=== PATIENT | female | born 1960 | race Caucasian/White ===

== ENCOUNTER 2016-12-03 05:57 | Inpatient (IN) | payer BC ==
[2016-11-22 15:33] VITALS: BMI 28.4
[2016-12-03] MEDS ORDERED: CEFAZOLIN 1 GM/D5W 50 ML IVPB ONE (06:32)
[2016-12-03] MEDS ORDERED: GABAPENTIN 300 MG CAPSULE (FP) PO ONE (06:32)
[2016-12-03] MEDS ORDERED: ROPIVICAINE 0.2%/MORPH PF/KETOROLAC - 51ML DISP.SYRINGE IA ONE ×2 (06:32→10:06)
[2016-12-03] MEDS ORDERED: oxyCODONE HCL 10 MG SUSTAINED ACTING TABLET PO ONE (06:32)
[2016-12-03] MEDS ORDERED: CELECOXIB 200 MG CAPSULE PO ONE (06:32)
[2016-12-03] MEDS ORDERED: TRANEXAMIC ACID 1000 MG/10 ML VIAL IVPUSH ONE ×2 (06:32→10:05)
[2016-12-03] MEDS ORDERED: DEXAMETHASONE SOD PHOSPHATE/PF 10 MG/ML SDV ONE (06:37)
[2016-12-03] MEDS ORDERED: BUPIVACAINE HCL/PF (5 MG/ML) 30 ML VIAL IJ ONE (06:38)
[2016-12-03] MEDS ORDERED: MIDAZOLAM HCL 2 MG/2 ML SINGLE DOSE VIAL ONE ×3 (06:38→08:53)
[2016-12-03] MEDS ORDERED: SODIUM CHLORIDE 0.9% P/F 10 ML VIAL IJ ONE ×2 (06:38→07:28)
[2016-12-03] MEDS ORDERED: DEXAMETHASONE SOD PHOSPHATE 4 MG/1 ML VIAL ONE (07:20)
[2016-12-03] MEDS ORDERED: PROPOFOL 20 ML ONE ×3 (07:20→09:05)
[2016-12-03] MEDS ORDERED: ONDANSETRON 4 MG/2 ML VIAL ONE (07:20)
[2016-12-03] MEDS ORDERED: ePHEDrine SULFATE 50 MG/1 ML AMPULE ONE (07:20)
[2016-12-03] MEDS ORDERED: PHENYLEPHRINE HCL 10 MG/1 ML SINGLE DOSE VIAL ONE (07:20)
[2016-12-03] MEDS ORDERED: LIDOCAINE HCL 2% 100 MG/5 ML DISP.SYRIN ONE (07:20)
[2016-12-03] MEDS ORDERED: SUCCINYLCHOLINE CHLORIDE 200 MG/10 ML VIAL ONE (07:20)
[2016-12-03] MEDS ORDERED: ceFAZolin SODIUM 1 GM VIAL ONE ×3 (07:20→09:59)
[2016-12-03] MEDS ORDERED: VANCOMYCIN 1,000 MG VIAL (RESTRICTED TO ID ONLY) ONE (07:21)
[2016-12-03] MEDS ORDERED: BUPIVACAINE HCL/PF 0.5% (5MG/ML) 10 ML VIAL ONE (07:38)
--- NOTE | 2016-12-03 08:24 | HP ---
Admitting History and Physical - Admission Chief Complaint: left knee OA History of Present Illness: left knee pain x several years. Dx'ed with severe OA. Failed conservative mgmt. Indicated for TKA History Source: Patient, Medical Record Limitations to Obtaining History: No Limitations - Past Medical History ...LMP: 08/12/16 Additional Past Medical History: See full PHM in written chart. - Past Surgical History Past Surgical History: Yes: Arthrosocopy Additional Past Surgical History: Ovarian cystectomy Breast implants fraire as child - Smoking History Smoking history: Never smoked Have you smoked in the past 12 months: No - Alcohol/Substance Use Hx Alcohol Use: No Home Medications - Allergies Allergies/Adverse Reactions: Allergies Allergy/AdvReac Type Severity Reaction Status Date / Time ibuprofen [From Advil] Allergy Severe FACIAL Verified 07/15/13 13:31 SWELLING - Home Medications Home Medications: Ambulatory Orders Cyclobenzaprine HCl [Flexeril 10 mg] 10 mg PO TID 11/22/16 Gabapentin 300 mg PO HS 11/22/16 Meloxicam [Mobic] 15 mg PO PRN PRN 11/22/16 Physical Examination Vital Signs: Vital Signs Temperature 98.9 F 12/03/16 06:34 Pulse Rate 88 12/03/16 06:34 Respiratory Rate 18 12/03/16 06:34 Blood Pressure 135/86 12/03/16 06:34 O2 Sat by Pulse Oximetry (%) Constitutional: Yes: Well Nourished, No Distress, Calm Eyes: Yes: WNL, Conjunctiva Clear HENT: Yes: WNL, Atraumatic, Normocephalic Neck: Yes: WNL, Supple Cardiovascular: Yes: WNL, Regular Rate and Rhythm Respiratory: Yes: WNL, Regular Gastrointestinal: Yes: WNL, Soft ...Rectal Exam: Yes: Deferred Musculoskeletal: Yes: Joint Stiffness, Joint Swelling, Muscle Pain, Muscle Weakness Extremities: Yes: WNL Edema: No Peripheral Pulses WNL: Yes Integumentary: Yes: WNL, Other (healed fraire in multiple areas) Neurological: Yes: WNL, Alert, Oriented ...Motor Strength: WNL Psychiatric: Yes: WNL, Alert, Oriented Labs: reviewed in chart Imaging - Results X-ray: Image Reviewed Problem List - Problems (1) Osteoarthritis of left knee Code(s): M17.12 - UNILATERAL PRIMARY OSTEOARTHRITIS, LEFT KNEE Qualifiers: Osteoarthritis type: primary Qualified Code(s): M17.12 - Unilateral primary osteoarthritis, left knee Assessment/Plan 56yo female with severe left knee OA for L TKA
[2016-12-03] MEDS ORDERED: VANCOMYCIN 1,000 MG VIAL (RESTRICTED TO ID ONLY) IVPB ONE (10:05)
--- NOTE | 2016-12-03 11:20 | OP ---
Operative Note - Note: Operative Date: 12/03/16 Pre-Operative Diagnosis: left knee OA Operation: left TKA Post-Operative Diagnosis: Same as Pre-op Surgeon: Kan Cornelius Clam Digger: Dawn Gagnon Anesthesia: Spinal Estimated Blood Loss (mls): 50
[2016-12-03] MEDS ORDERED: MAGNESIUM HYDROX 2400MG/30ML ORAL SUSPENSION 30 ML CUP PO PRN (11:21)
[2016-12-03] MEDS ORDERED: ONDANSETRON 4 MG/2 ML VIAL IVPB PRN (11:21)
[2016-12-03] MEDS ORDERED: MAG HYDROX/AL HYDROX/SIMETH 30 ML UNIT-DOSE CUP PO PRN (11:21)
[2016-12-03] MEDS ORDERED: LACTATED RINGERS SOLUTION 1,000 ML IV SCH (11:30)
[2016-12-03] MEDS ORDERED: ACETAMINOPHEN 325 MG TABLET (FP) ONE (12:11)
[2016-12-03] MEDS: KETOROLAC TROMETHAMINE 30 MG/1 ML VIAL IVPUSH SCH ×4 (12:15→18:09)
[2016-12-03] MEDS: traMADol HCL 50 MG TABLET PO SCH ×2 (12:15→18:10)
[2016-12-03] MEDS ORDERED: oxyCODONE HCL 5 MG TABLET PO PRN (13:35)
[2016-12-03] MEDS ORDERED: ROPIVACAINE 0.2% 400ML 400 ML ML NR ONE (13:35)
[2016-12-03] MEDS: ACETAMINOPHEN 325 MG TABLET (FP) PO SCH ×2 (14:38→18:09)
[2016-12-03] MEDS: oxyCODONE HCL 5 MG TABLET PO PRN (16:01)
[2016-12-03] MEDS ORDERED: ROPIVACAINE HCL 0.5% 30ML VIAL ONE (16:51)
[2016-12-03] MEDS: CEFAZOLIN 1 GM/D5W 50 ML IVPB SCH (18:07)
[2016-12-03] MEDS: CELECOXIB 200 MG CAPSULE PO SCH (21:45)
[2016-12-03] MEDS: ASCORBIC ACID 500 MG TABLET (FP) PO SCH (21:45)
[2016-12-03] MEDS: SENNOSIDES/DOCUSATE COMBO (SENNA PLUS) TABLET (UD) PO SCH (21:45)
[2016-12-03] MEDS: oxyCODONE HCL 10 MG SUSTAINED ACTING TABLET PO SCH (21:46)
[2016-12-03] MEDS: GABAPENTIN 300 MG CAPSULE (FP) PO SCH ×2 (21:46→21:47)
[2016-12-03] MEDS ORDERED: CELECOXIB 200 MG CAPSULE PO SCH (22:00)
[2016-12-04] MEDS: traMADol HCL 50 MG TABLET PO SCH ×5 (00:30→23:57)
[2016-12-04] MEDS: KETOROLAC TROMETHAMINE 30 MG/1 ML VIAL IVPUSH SCH ×2 (00:30→06:23)
[2016-12-04] MEDS: ACETAMINOPHEN 325 MG TABLET (FP) PO SCH ×5 (00:30→23:57)
[2016-12-04] MEDS: CEFAZOLIN 1 GM/D5W 50 ML IVPB SCH (02:00)
[2016-12-04] MEDS ORDERED: ASPIRIN 325 MG TABLET PO SCH (08:00)
[2016-12-04 08:47] LABS: MCH 28.6 pg (25.7-33.7); MCHC 33.7 g/dl (32.0-36.0); MEAN PLT VOLUME 9.6 fl (7.5-11.1); PLATELET COUNT 176 K/MM3 (134-434); RDW 14.6 % (11.6-15.6); WHITE BLOOD COUNT 13.1 K/mm3 (4.0-10.8)
[2016-12-04 08:58] LABS: ANION GAP 8 (8-16); CALCIUM 8.7 mg/dl (8.4-10.2); CO2 26 mmol/L (22-28); CREATININE 0.7 mg/dl (0.6-1.3); GLUCOSE,RANDOM 139 mg/dl (74-106)
--- NOTE | 2016-12-04 09:32 | SURG ---
Surgery Paper Twister Note Paper Twister: Dawn Gagnon PA-C Date of Service: 12/03/16 Diagnosis: left knee OA Procedure: left TKA I was present for the entirety of the operative procedure. For further detail, please refer to operative report. Visit type - Case Type Case Type: Scheduled Admission - Emergency Emergency Visit: No - New patient This patient is new to me today: Yes Date on this admission: 12/04/16 - Critical Care Critical Care patient: No
[2016-12-04] MEDS: PANTOPRAZOLE 40 MG TABLET (FP) PO SCH (10:09)
[2016-12-04] MEDS: CELECOXIB 200 MG CAPSULE PO SCH ×2 (10:09→21:41)
[2016-12-04] MEDS: ASPIRIN 325 MG TABLET PO SCH (10:09)
[2016-12-04] MEDS: GABAPENTIN 300 MG CAPSULE (FP) PO SCH ×3 (10:10→21:41)
[2016-12-04] MEDS: SENNOSIDES/DOCUSATE COMBO (SENNA PLUS) TABLET (UD) PO SCH ×2 (10:10→21:40)
[2016-12-04] MEDS: MULTIVITAMINS (DAILY MVI) TABLET (FP) PO SCH (10:10)
[2016-12-04] MEDS: ASCORBIC ACID 500 MG TABLET (FP) PO SCH ×2 (10:11→21:41)
[2016-12-04] MEDS: oxyCODONE HCL 10 MG SUSTAINED ACTING TABLET PO SCH ×2 (10:11→21:40)
--- NOTE | 2016-12-04 10:56 | PN ---
Progress Note (short form) - Note Progress Note: 56F POD1 s/p TKR under spinal anesthetic with CACB and tibial blocks for post operative pain. Pt is doing well, AVSS, reports that pain is well controlled. Sensory and motor function is intact in bilateral lower extremities, catheter site is clean.
[2016-12-04] MEDS: oxyCODONE HCL 5 MG TABLET PO PRN (21:41)
[2016-12-04 22:45] VITALS: PULSE 87
--- NOTE | 2016-12-05 01:10 | PN ---
Progress Note (short form) - Note Progress Note: Pt seen and examined yesterday (Saturday) evening. Doing well. No complaints. AVSS Selected Entries 12/04/16 22:43 Temperature 98.7 F Pulse Rate 87 Respiratory 18 Rate Blood Pressure 108/57 Laboratory Tests 12/04/16 12/04/16 07:45 07:45 WBC 13.1 H Hgb 11.7 Hct 34.7 Plt Count 176 Sodium 138 Potassium 4.3 Chloride 104 Carbon Dioxide 26 Anion Gap 8 BUN 19 H Creatinine 0.7 Random Glucose 139 H Calcium 8.7 Gen:NAD RLE: c/d/i, NVID A/P POD#1 s/p L TKA 1. PT/OOB 2. D/C home tomorrow. Problem List - Problems (1) Osteoarthritis of left knee Code(s): M17.12 - UNILATERAL PRIMARY OSTEOARTHRITIS, LEFT KNEE Qualifiers: Osteoarthritis type: primary Qualified Code(s): M17.12 - Unilateral primary osteoarthritis, left knee
--- NOTE | 2016-12-05 01:31 | DS ---
Physical Examination Vital Signs: Vital Signs Temperature 98.7 F 12/04/16 22:43 Pulse Rate 87 12/04/16 22:43 Respiratory Rate 18 12/04/16 22:43 Blood Pressure 108/57 12/04/16 22:43 O2 Sat by Pulse Oximetry (%) 96 12/04/16 22:43 Labs: CBC, BMP 12/04/16 07:45 12/04/16 07:45 Discharge Summary Reason For Visit: OSTEOARTHRITIS LEFT KNEE Current Active Problems Osteoarthritis of left knee (Acute) Procedures: Principal: total knee replacement left Hospital Course: Admitted for elective surgery. Procedure performed without complications. Pt received postoperative antibiotic prophylaxis and DVT ppx. Ambulated with physical therapy. Stable for discharge home with outpatient followup. Condition: Stable - Instructions Diet, Activity, Other Instructions: Dr. Cornelius - Knee Replacement Instructions Keep the Aquacel dressing on until removed by Dr. Cornelius in 10-14 days - it is antibacterial and waterproof and you can shower with it on. Call the office for a follow-up appointment with Dr. Giordano (Dr. Saba will be on vacation) in 10-14 days. [phone] Take one Aspirin 325mg daily for 6 weeks to prevent blood clots in your legs. Take one Pantoprazole 40mg daily for 6 weeks to protect against heartburn and ulcers. Take Meloxicam 15 mg daily for 30 days to reduce swelling and inflammation. Take a multivitamin, vitamin C supplement, and stool softener daily. For pain: *Mild pain (1-3/10): Take 1 Tramadol tablet every 4 hours as needed. Moderate pain (4-6/10): Take 1 Tramadol tablet and 1 Percocet tablet every 4 hours as needed. Severe pain (7-10/10): Take 1 Tramadol tablet and 2 Percocet tablets every 4 hours as needed. Activity: You can put as much weight on the operative leg as you want. Right after you get home, there will be a physical therapist coming to your house to help you walk around and bend/straighten your knee. After your follow-up appointment, you will be sent for more intensive outpatient physical therapy which will include machines and equipment that the home therapist cannot bring to your house. Always use a walker or cane for balance and to prevent falls. Disposition: [facility]NS/HOME HEALTH CARE - Home Medications Comprehensive Discharge Medication List: Ambulatory Orders Cyclobenzaprine HCl [Flexeril 10 mg] 10 mg PO TID 11/22/16 Gabapentin 300 mg PO HS 11/22/16 Ascorbic Acid [Vitamin C -] 500 mg PO BID tablet 12/05/16 Aspirin [ASA -] 325 mg PO DAILY@0800 tablet 12/05/16 Meloxicam [Mobic] 15 mg PO DAILY #30 tab 12/05/16 Multivitamins [Multivit ([facility] Formulary)] 1 tab PO DAILY tab 12/05/16 Oxycodone HCl/Acetaminophen [Percocet 5-325 mg Tablet] 1 - 2 tab PO Q4H PRN #60 tablet MDD 8 12/05/16 Pantoprazole Sodium [Protonix -] 40 mg PO DAILY #40 tab 12/05/16 Sennosides/Docusate Sodium [Pericolace -] 2 tablet PO BID tablet 12/05/16 Tramadol HCl [Ultram -] 50 mg PO Q4H PRN #90 tablet MDD 6 12/05/16
[2016-12-05] MEDS: traMADol HCL 50 MG TABLET PO SCH (06:27)
[2016-12-05] MEDS: ACETAMINOPHEN 325 MG TABLET (FP) PO SCH (06:27)
[2016-12-05 06:41] VITALS: BP 118/60; TEMP 98.3
[2016-12-05] MEDS: ASPIRIN 325 MG TABLET PO SCH (08:02)
[2016-12-05] MEDS: oxyCODONE HCL 10 MG SUSTAINED ACTING TABLET PO SCH (09:09)
[2016-12-05] MEDS: MULTIVITAMINS (DAILY MVI) TABLET (FP) PO SCH (09:09)
[2016-12-05] MEDS: PANTOPRAZOLE 40 MG TABLET (FP) PO SCH (09:09)
[2016-12-05] MEDS: CELECOXIB 200 MG CAPSULE PO SCH (09:10)
[2016-12-05] MEDS: GABAPENTIN 300 MG CAPSULE (FP) PO SCH (09:10)
[2016-12-05] MEDS: ASCORBIC ACID 500 MG TABLET (FP) PO SCH (09:10)
[2016-12-05] MEDS: SENNOSIDES/DOCUSATE COMBO (SENNA PLUS) TABLET (UD) PO SCH (09:13)
[2016-12-05 09:21] LABS: MCH 27.8 pg (25.7-33.7); MCHC 33.2 g/dl (32.0-36.0); MEAN CELL VOLUME 83.8 fl (80-96); MEAN PLT VOLUME 10.4 fl (7.5-11.1); PLATELET COUNT 180 K/MM3 (134-434); RDW 14.7 % (11.6-15.6); WHITE BLOOD COUNT 8.9 K/mm3 (4.0-10.8)
--- NOTE | 2016-12-05 11:09 | PN ---
Progress Note (short form) - Note Progress Note: POD #2 - s/p left total knee replacement under spinal anesthesia/peripheral nerve block. Pt. doing well, ready for discharge. Good pain control. Adductor canal catheter removed. Discharge pain meds as per ortho.
--- NOTE | 2016-12-05 12:42 | PN ---
Progress Note (short form) - Note Progress Note: Pt seen and examined this morning. Doing well. No complaints. AVSS Selected Entries 12/05/16 12/05/16 03:00 06:40 Temperature 98.3 F Pulse Rate 87 Respiratory 20 Rate Blood Pressure 118/60 O2 Sat by Pulse 96 Oximetry (%) Oxygen Delivery Room Air Method Laboratory Tests 12/05/16 07:51 WBC 8.9 D Hgb 11.1 Hct 33.4 Plt Count 180 Gen:NAD RLE: c/d/i, NVID A/P POD#2 s/p L TKA 1. PT/OOB 2. D/C home Problem List - Problems (1) Osteoarthritis of left knee Code(s): M17.12 - UNILATERAL PRIMARY OSTEOARTHRITIS, LEFT KNEE Qualifiers: Osteoarthritis type: primary Qualified Code(s): M17.12 - Unilateral primary osteoarthritis, left knee
--- NOTE | 2016-12-05 14:39 | PATH ---
Surgical Pathology Report Patient Name: QASIM COKER Med. Rec. #: [id number] /Age/Gender: 1960 (Age: 56) / F Account: [id number] Location: [facility] MED-SURG Taken: 12/03/2016 Received: 12/03/2016 Reported: 12/05/2016 Physicians: Kan Cornelius M.D. Specimen(s) Received LEFT KNEE BONE AND TISSUE Clinical History Osteoarthritis left knee Final Diagnosis BONE AND SOFT TISSUE, LEFT KNEE, REPLACEMENT: DEGENERATIVE JOINT DISEASE. Electronically Signed [place] Charles M.D. Gross Description Received in formalin labeled "left knee bones and tissue," is a 12.5 x 9.5 x 1.6 cm aggregate of multiple irregular, unoriented portions of bone and soft tissue. The tibial plateau measures 7.3 x 5.5 x 1.6 cm. There is a 2.5 cm greatest dimension area of eburnation present. The remaining articular surfaces are grubbs-yellow and focally granular. The underlying trabecular bone is yellow and hard. [place] sections are submitted in one cassette, following decalcification. /12/04/201612/04/2016
--- NOTE | 2016-12-27 20:05 | SPEC ---
DATE OF OPERATION: 12/03/2016 PREOPERATIVE DIAGNOSIS: Left knee osteoarthritis. POSTOPERATIVE DIAGNOSIS: Left knee osteoarthritis. PROCEDURE: Left total knee replacement. ATTENDING: Jenniffer Jose M.D. YARD CONDUCTOR: Cecy Luo ANESTHESIA: Spinal plus sedation. ESTIMATED BLOOD LOSS: 50 mL. TOURNIQUET TIME: 114 minutes. COMPLICATIONS: None. SPECIMENS: Resected bone was sent for pathology and analysis. DISPOSITION: The patient was transferred to the PACU in stable condition. IMPLANTS USED: [place] Triathlon size 4 femoral component, [place] Triathlon size 4 tibial component, 32-mm patellar component, 11-mm posterior stabilized polyethylene component. INDICATION: This is a 56-year-old female who presented to the office complaining of severe left knee pain. She was seen and examined by Dr. Jose and diagnosed with severe left knee osteoarthritis. Patient was initially treated nonoperatively with injections, medications, physical therapy, and continued to have severe pain and ambulatory dysfunction. She was subsequently indicated for a total knee replacement. The risks, benefits, and alternatives to the procedure were explained to the patient in great detail, and she elected to proceed with the surgery. On the day of surgery, the patient was taken to the operating room and placed on the OR table. Spinal anesthesia was administered by the anesthesiologist. The patient was then positioned supine on the table and all bony prominences were padded. A nonsterile tourniquet was placed on the proximal thigh. The knee was then prepped and draped in the usual sterile fashion and intravenous antibiotics were given for infection prophylaxis. A surgical time-out was then performed with the team, and the patients identity, procedure, side, availability of implants, and the administration of antibiotics was confirmed. The leg was then elevated and exsanguinated, and the tourniquet was inflated. With the knee flexed, a midline incision was made and carried down through the subcutaneous fat to the underlying retinaculum. A medial parapatellar arthrotomy was performed. This was followed by a subperiosteal dissection of the tissue off the proximal, medial tibia. A portion of fat pad was removed from under the patellar tendon, and a small portion of fat was excised off the distal supracondylar femur. The knee was then flexed further and the anterior horn of the lateral meniscus was released from the midline. Next, the anterior and posterior cruciate ligaments were transected. Osteophytes were removed from both the femur and tibia. Grade 4 changes were noted diffusely throughout the knee. Hohmann retractors were then placed around the distal femur. The starting drill was used to enter the intramedullary canal. The starting point had been chosen by checking the radiographs and anatomy. Proper alignment and intramedullary placement was then confirmed by placing the long narrow gerard into the femur. Next, the distal femoral cutting guide was adjusted to 6 degrees of valgus and pinned to the femur. The bone resection was assessed using an dave-wing. An approximately 10mm distal cut was made and the cut pieces measured. Once this was complete, the sizing guide was used to determine which size femoral component should be used. Next, the appropriately sized 4-in-1 cutting block was then placed at the correct amount of external rotation and the dave wing was used to assure that there would be no notching of the anterior cortex of the femur. Once this was done, Hohmann retractors were used to protect the medial and lateral collateral ligaments, and all appropriate bone cuts were made. Attention was then turned to the tibia. Hohmann retractors were used to translate the tibia anteriorly and protect the collateral ligaments. The medial and lateral menisci were removed. The extramedullary tibial alignment guide was then placed and adjusted for rotation, varus/valgus, and slope. The height of the cutting block was adjusted to the level of the desired bone resection and then pinned in place. The proximal tibia was then cut with a saw and the bone was removed and measured. Once this was completed, trial components were placed and the knee was taken through a full range of motion. Soft tissue balance was assessed in both flexion and extension and found to be appropriate. The knee was stable throughout the full range of motion. The knee was then put into extension and the patella everted. The synovium around the patella was circumscribed with electrocautery. A caliper was used to measure the patellar thickness and a saw was then used to resect the patella at the chondro-osseous junction. The cut surface was then sized and drilled for the appropriate patellar button, with care taken to medialize it. A trial patella was then placed and the knee was again taken through a full range of motion. The knee was found to have both good balance and good patellar tracking. All of the components were removed except the tibial base plate. The appropriate instrumentation was used to drill and punch the proximal tibia for the keel of the final component. All bony surfaces were then cleaned with pulsatile lavage and dried. Bone cement was then prepared on the back table, and final components were cemented in place in the usual fashion. Extruded cement was removed. The polyethylene trial was placed, the knee was put into extension, and axial pressure was applied for compression while the cement hardened. The patellar button was similarly cemented into place. Once the cement had hardened, the knee was taken through a full range of motion to assess stability, balance, and patellar tracking. This was found to be optimal and the trial polyethylene was exchanged for the appropriately sized real implant. The wound was then thoroughly irrigated with normal saline. No. 1 Polysorb and 0 VLoc 180 barbed sutures were used to close the arthrotomy. No. 1 Polysorb and 2-0 Polysorb sutures were used in the subcutaneous tissues. The skin was closed using both 3-0 VLoc 90 suture in a running subcuticular fashion and SwiftSet skin adhesive. Once this was completed a sterile Aquacel dressing and compressive Rafat-wrap was applied. The tourniquet was then deflated and the patient was awakened and taken to the PACU in stable condition. JENNIFFER JOSE M.D. MARIA [id number]
== END 2016-12-05 11:30 | disposition home health service (06) | DRG 470 ==
LOC: FM/S 05:57
PROVIDERS: ADMIT Student in an Organized Health Care Education/Training Program; ATTEND Student in an Organized Health Care Education/Training Program
PROC: 0SRD0JZ Replacement of Left Knee Joint with Synthetic Substitute, Open Approach (ICD-10-PCS; principal; 2016-12-03 08:00)
DX: M17.12 Unilateral primary osteoarthritis, left knee (principal)
CPT/HCPCS: 36415; 73560-TC-LT; 80048; 84703; 85027; 88305-TC; 88311-TC; 94010; 94760; 97116-GP; 97162-GP